=== PATIENT | male | born 1955 | race African-American/Black ===

== ENCOUNTER 2025-03-15 15:12 | Outpatient (AMB) | payer MEDICARE, SELFPAY ==
--- NOTE | 2025-03-15 15:22 | MHC.PC.OV ---
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 Intake Note: feet problem [employer] Sales Representative Required: No Accompanied by: Self / Same As Patient Allergies asprin Allergy (Intermediate, Uncoded 03/15/25 16:46) Hypotension Medication List - Last Reconciled 03/15/25 by Seven Patel MD acetaminophen 500 mg PO QID PRN albuterol sulfate 90 mcg/actuation (Ventolin HFA) 1 puff inhalation QID amlodipine 5 mg PO DAILY benzonatate 100 mg PO BID-TID PRN cholecalciferol (vitamin D3) 125 mcg PO DAILY cyclobenzaprine 5 mg PO BEDTIME diclofenac potassium 25 mg PO BID famotidine 20 mg PO DAILY ibuprofen 600 mg PO TID linaclotide 290 mcg PO DAILY magnesium oxide 400 mg PO DAILY mirtazapine 15 mg PO BEDTIME naproxen 500 mg PO BID rosuvastatin 10 mg PO DAILY solifenacin 10 mg PO DAILY trazodone 100 mg PO BEDTIME PRN Tobacco use date assessed: 03/15/25 Fall risk assessment: 1 Fall in past year Last assessed Fall Risk: 03/15/25 Dental Screening Dental Screen Date: 03/15/25 Did you have a dental visit in the last 12 months?: No Did you have a dental problem in the last 6 months where you did not have access to dental care?: Yes Was dental information given to patient?: No HPI HPI Comments History of Present Illness Details History of Present Illness The patient is a 69 year old individual presenting for an initial visit to establish care and for management of multiple chronic conditions. Myalgia and Arthritis: The patient reports chronic muscle problems with tension, arthritis, and daily pain for the last five to six years. The pain affects both joints and muscles, with one side being worse than the other, and particularly involves the hands. The pain worsens after any physical work, leading to an inability to sleep at night. Ibuprofen 800 mg provides no relief. The patient reports a diagnosis of sciatica and completed physical therapy about a year ago. History of Prostate Cancer: The patient is a prostate cancer survivor, having undergone a prostatectomy. The patient did not receive chemotherapy or radiation therapy. History of Colon Polyps: The patient's last colonoscopy was approximately eight to nine years ago, which found polyps. Gastroesophageal Reflux Disease: The patient reports having a reflux thing. History of Ankle Fracture: The patient sustained an ankle fracture while in the and was hospitalized for it. The patient underwent surgery where six screws and a plate were placed, and this hardware was later removed a couple of years later due to associated problems. Surgical History: - Prostatectomy for prostate cancer - Open reduction and internal fixation of an ankle fracture with six screws and a plate - Removal of ankle hardware Medications: - Ibuprofen 800 mg for pain, which the patient reports is not effective. - The patient takes other medications from the but could not recall their names. 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 - Marital Status: The patient is . - Living Situation: The patient moved to the area five months ago. Family History: - The patient reports that cancer runs in the family. - A brother has or had cancer. Diagnostic Results: - Colonoscopy (8-9 years ago): Revealed polyps. Past Medical History - Prostate cancer, status post-prostatectomy, without chemotherapy or radiation - History of colon polyps on colonoscopy performed 8-9 years ago - Arthritis - Myalgia - Gastroesophageal reflux - Sciatica - History of ankle fracture requiring open reduction with internal fixation and subsequent hardware removal - Possible allergy to aspirin on record Health Maintenance - The patient is establishing care as a new patient. - The last visit with a primary care physician was 8 months to a year ago. - The patient had a colonoscopy 8-9 years ago which showed polyps; the patient is overdue for screening. - A referral will be placed for a screening colonoscopy. - Baseline labs will be drawn, including a complete blood count, comprehensive metabolic panel, thyroid studies, vitamin B12, folate, vitamin D, hemoglobin A1c, lipid panel, and HIV/hepatitis panel. [facility] Medical History (Updated 03/15/25 @ 16:53 by Seven Patel MD) History of ankle fracture History of colon polyps History of prostate cancer Hypertension Myalgia Myalgia due to statin Osteopenia Hyperlipemia Renal calculus Prostate cancer Acid reflux Arthritis Depression Sleep apnea Surgical History (Updated 03/15/25 @ 15:29 by Steve Suazo CMA) History of ankle surgery Family History (Updated 03/15/25 @ 15:30 by Steve Suazo CMA) Brother Hypertension Mother Heart disease Sister Heart disease Brother Diabetes Paternal Aunt Diabetes Maternal Aunt Diabetes Social History Housing: House Patient Tobacco Use Status: Never used Tobacco e-Cigarette/Vaping Use: Never Used service: Yes Current occupational status: disabled Current occupational exposures/hazards: No Cognitive needs: No Hearing needs: No Vision needs: Yes Questionnaire PHQ-9 Over the last 2 weeks, how often have you been bothered by any of the following problems? 1. Little interest or pleasure in doing things: more than half the days 2. Feeling down, depressed, or hopeless: more than half the days 3. Trouble falling or staying asleep, or sleeping too much: nearly every day 4. Feeling tired or having little energy: more than half the days 5. Poor appetite or overeating: several days 6. Feeling bad about yourself - or that you are a failure or have let yourself or your family down: more than half the days 7. Trouble concentrating on things, such as reading the newspaper or watching television: several days 8. Moving or speaking so slowly that other people could have noticed. Or the opposite - being so fidgety or restless that you have been moving around a lot more than usual: several days [id number] - PHQ-9 Billing: Yes Source: Developed by Drs. Phoenix Esparza, Jing Ji, Chad Yang and colleagues, with an educational samra from [employer]. Thrive Questionnaire Date Thrive assessed: 03/15/25 Review of Systems Narrative Review of Systems - General: Reports chronic, daily pain. - Musculoskeletal: Reports muscle tension, arthritis, and pain in both joints and muscles, which is worse after activity and affects sleep. - Neurological: Reports sciatica. - Gastrointestinal: Reports having reflux. - Bowels: Reports bowel movements are mostly okay and denies straining. - Genitourinary: Reports frequent urination. - Cardiovascular: Denies lower leg swelling. - Allergies: Denies known allergies but notes aspirin is on the patient's record from a young age. 10-point ROS reviewed and negative except as noted in HPI Physical exam (Primary Care) Vital Signs: Last Vital Signs Temp 97.9 F 03/15/25 15:31 Pulse 61 03/15/25 15:31 Resp 16 03/15/25 15:31 BP 129/60 03/15/25 15:31 Pulse Ox 98 03/15/25 15:31 Oxygen Delivery Method Room Air 03/15/25 15:31 BMI result Body Mass Index 29.6 Tobacco/Smoking Status: Tobacco use Status Tobacco use date assessed 03/15/25 03/15/25 15:33 Patient Tobacco Use Status Never used Tobacco 03/15/25 15:33 e-Cigarette/Vaping Use Never Used 03/15/25 15:33 Thrive Assessment: Date of Thrive Assessment Date Thrive assessed 03/15/25 03/15/25 15:23 Narrative Physical Exam General: Well-appearing, in no acute distress. Vital signs: Within normal limits. HEENT: Normocephalic, atraumatic. PERRLA, EOMI. Conjunctiva clear, sclera anicteric. Oropharynx clear, mucous membranes moist. TMs intact bilaterally. Neck: Supple, no lymphadenopathy, no thyromegaly, no JVD or carotid bruits. Cardiovascular: RRR, normal S1/S2, no murmurs, rubs, or gallops. Peripheral pulses 2+ and symmetric. No edema. Respiratory: Lungs clear to auscultation bilaterally, no wheezes, rales, or rhonchi. Normal effort. Abdomen: Soft, non-tender, non-distended. Normoactive bowel sounds. No hepatosplenomegaly, no masses. MSK: Full range of motion, no joint swelling or deformity. Normal gait. Skin: Warm, dry, intact. No rashes, lesions, or pallor. Neuro: Alert and oriented x3. Cranial nerves II-XII intact. Strength 5/5 throughout. Sensation intact. Reflexes 2+ symmetric. Normal coordination and gait. Psych: Appropriate mood and affect. Normal judgment and insight. Coding Level of Care Code New Pt Level 4 (56695) Diagnoses Hypertension I10 History of prostate cancer Z85.46 History of colon polyps Z86.0100 History of ankle fracture Z87.81 Acid reflux K21.9 Arthritis M19.90 Additional Codes PHQ-9 - 52893 - PHQ-9 Billing: Yes ([id number]) Assessment & Plan Assessment & Plan (1) Hypertension: Code(s): I10 - Essential (primary) hypertension Category: Medical (2) History of prostate cancer: Code(s): Z85.46 - Personal history of malignant neoplasm of prostate Category: Medical (3) History of colon polyps: Code(s): Z86.0100 - Personal history of colon polyps, unspecified Category: Medical (4) History of ankle fracture: Code(s): Z87.81 - Personal history of (healed) traumatic fracture Category: Medical (5) Acid reflux: Code(s): K21.9 - Gastro-esophageal reflux disease without esophagitis Category: Medical (6) Arthritis: Code(s): M19.90 - Unspecified osteoarthritis, unspecified site Category: Medical Plan Consent Patient was informed and verbally consented to the use of an ambient scribe for clinic note documentation during this visit. Plan 1. Chronic Myalgia And Arthritis - Recommended a trial of [id number] Coenzyme Q10 (CoQ10) for muscle pain and aches. 2. Health Maintenance / New Patient Visit - Ordered comprehensive baseline labs including CBC, CMP, thyroid panel, B12, folate, vitamin D, HbA1c, lipid panel, and HIV/hepatitis screening. - The patient was advised to provide a complete medication list at checkout. - Scheduled a follow-up appointment in two weeks to review lab results. 3. Colon Cancer Screening - Based on a history of colon polyps found 8-9 years ago, the patient is overdue for follow-up. - A referral to Gastroenterology for a screening colonoscopy will be placed. - The patient was instructed to contact the specialist's office if they are not contacted within 1-2 weeks. Discussion Notes I explained to the patient that since this is an initial visit, we would get baseline bloodwork to assess overall health, including a complete blood count, comprehensive metabolic panel, thyroid function, vitamin levels, hemoglobin A1c, a lipid panel, and infectious disease screening. For the patient's chronic muscle and joint pain, which has been unresponsive to ibuprofen, I recommended a trial of [id number] CoQ10, explaining that it is a safe supplement that I have found helpful for other patients with similar symptoms. We discussed the history of colon polyps found on a colonoscopy 8-9 years ago. I explained that with a finding of polyps, a repeat screening is recommended every 3-5 years, making the patient overdue. Therefore, I am placing a referral to gastroenterology for a colonoscopy and advised the patient to call the specialist's office if no contact is made within two weeks. We will have a follow-up visit in two weeks to review all lab results and discuss any other questions the patient may have. Patient Instructions - This is a first-time visit to get to know you and your health. - You can buy a supplement called CoQ10 over the counter for your muscle pain. - We are ordering a full set of blood tests today to check on your overall health. - Please give the front worker staff your complete list of medications before you leave. - We are sending a referral to a gut doctor (senior principal software engineer) for you to get a colonoscopy. - Their office will call you to schedule. If you do not hear from them in one to two weeks, please give them a call. - Please schedule a follow-up appointment to see me in two weeks to go over your test results. - If you have any questions, write them down and bring them to your next visit. Medical Decision Making The patient is a 69-year-old individual presenting for a new patient visit to establish primary care. Davies issues addressed include chronic, diffuse myalgias and arthralgias, GERD, and health maintenance. The patient's chronic pain, ongoing for 5-6 years and poorly responsive to ibuprofen 800 mg, significantly impacts the patient's quality of life. As a low-risk initial intervention pending lab results, I recommended a trial of CoQ10, which I have found to be beneficial for some patients with non-specific muscle aches. A critical health maintenance concern is colon cancer screening. Given the history of colon polyps 8-9 years ago and a family history of cancer, the patient is overdue for surveillance. A repeat colonoscopy should occur every 3-5 years in this context, not every 10. Consequently, I am placing a referral to gastroenterology. To establish a comprehensive baseline, I ordered a full panel of labs to screen for common chronic illnesses and potential etiologies for the patient's symptoms. Follow-up in two weeks is scheduled to review these results and refine the long-term management plan. Total Time Statement 30 min Total time spent caring for the patient today includes pre-visit chart review, documentation, review of laboratory and diagnostic imaging results, medication reconciliation, medically necessary evaluation, counseling on diagnoses, care coordination, ordering appropriate tests and medications, review of tests performed by other providers, reporting test results to the patient, and communication with other healthcare providers. Orders: Orders Complete Blood Count Auto Diff Today Z13.9 - Encounter for screening, unspecified Hepatitis C Antibody Today Z13.9 - Encounter for screening, unspecified TSH reflex Free T4 Today Z13.9 - Encounter for screening, unspecified Lipid Panel Today Z13.9 - Encounter for screening, unspecified Hemoglobin A1c Today Z13.9 - Encounter for screening, unspecified Magnesium Today Z13.9 - Encounter for screening, unspecified Hepatitis B Surface Antigen Today Z13.9 - Encounter for screening, unspecified Syphilis Screen Today Z13.9 - Encounter for screening, unspecified Comprehensive Met. Panel Today Z13.9 - Encounter for screening, unspecified HIV Ab/Ag Today Z13.9 - Encounter for screening, unspecified UA CC w/rflx Micro + Cult Today Z13.9 - Encounter for screening, unspecified Vitamin B12 and Folate Today Z13.9 - Encounter for screening, unspecified Vitamin D 1,25 dihydroxy Today Z13.9 - Encounter for screening, unspecified Hepatitis B Surface Antibody Today Z13.9 - Encounter for screening, unspecified Referrals Open Access Screening Colonoscopy Referral Z12.11 - Encounter for screening for malignant neoplasm of colon, Z12.12 - Encounter for screening for malignant neoplasm of rectum
[2025-03-15 15:31] VITALS: BP 129/60; PULSE 61; RESP 16; TEMP 36.6; O2SAT 98; BMI 29.6
== END 2025-03-15 16:08 | disposition home or self-care (01) ==
LOC: HO.HMCFMS 15:12
PROVIDERS: PCP Student in an Organized Health Care Education/Training Program; Visit Provider Student in an Organized Health Care Education/Training Program
DX: I10 Essential (primary) hypertension (principal); Z85.46 Personal history of malignant neoplasm of prostate; Z86.0100 Personal history of colon polyps, unspecified; Z87.81 Personal history of (healed) traumatic fracture; K21.9 Gastro-esophageal reflux disease without esophagitis; M19.90 Unspecified osteoarthritis, unspecified site

== ENCOUNTER 2025-03-15 15:12 | Outpatient (REF) | payer MEDICARE, SELFPAY ==
[2025-03-15 18:19] LABS: MANUAL DIFF FLAG NO
[2025-03-15 18:38] LABS: Hematocrit 45.2 % (42.0-52.0); Hemoglobin 14.4 g/dl (14.0-18.0); Imm Gran Abs Auto 0.01 X10*3/uL (0.00-0.03); Imm Gran Pct Auto 0.2 % (0.0-0.4); Lymphocytes Absolute Auto 1.6 X10*3/uL (1.2-4.9); Mean Corpuscular HGB Conc 31.9 g/dl (31.0-36.0); Mean Corpuscular Hemoglobin 29.1 pg (27.0-33.0); Mean Corpuscular Volume 91.3 fL (80.0-98.0); NRBC Abs Auto 0.000 X10*3/uL (0.0-0.012); NRBC Pct Auto 0.0 /100WBC (0.0-0.2); Platelet Count 192 X10*3/uL (160-400); Red Blood Count 4.95 X10*6/uL (4.60-5.80); White Blood Count 4.7 X10*3/uL (4.8-10.8)
[2025-03-15 18:45] LABS: Appearance Urine Clear; Glucose Urine UA Negative (Negative); PH 7.0 (5.0-9.0); Specific Gravity - Urine 1.020 (1.005-1.025); UMIC TRIGGER UACC YES
[2025-03-15 19:05] LABS: Alanine Aminotransferase 28 U/L (0-40); Albumin Level 4.7 g/dL (3.5-5.0); Anion Gap 12 (12-20); Aspartate Amino Transferase 40 U/L (5-37); Blood Urea Nitrogen 19 mg/dL (9-16); Calcium 9.2 mg/dL (8.4-10.2); Carbon Dioxide 29 mmol/L (22-29); Chloride 107 mmol/L (96-108); Estimated Glomerular Filt Rate 42; Magnesium 2.0 mg/dL (1.6-2.6); Potassium 4.2 mmol/L (3.3-5.1); Sodium 144 mmol/L (135-145); Total Protein 7.3 g/dL (6.5-8.0); Triglycerides 150 mg/dL (<150)
[2025-03-15 19:06] LABS: Alkaline Phosphatase 58 U/L (39-117); Cholesterol 213 mg/dL (<200); HDL Cholesterol 52 mg/dL (>40)
[2025-03-15 19:36] LABS: Folate 7.0 ng/mL (> or = 4.0); Vitamin B12 695 pg/mL (200-900)
[2025-03-16 04:34] LABS: Syphilis Screen Nonreactive (Nonreactive)
[2025-03-16 05:14] LABS: HBS Num1 0.00 mIU/mL (0-7.99); HBsAGNum1 0.42 S/CO (0.00-0.99); HIV Num 1 0.08 S/CO (0.00-0.99); Hepatitis B Surface Antigen Negative (Negative); ~HepC Num1 0.08 S/CO (0.00-0.79); ~Hepatitis B Surface Antibody NONREACTIVE (Nonreactive); ~Hepatitis C Antibody Nonreactive (Nonreactive)
[2025-03-19 16:24] LABS: VITAMIN D (1,25 OH) D3 30 pg/mL; Vit D (1,25-Dihydroxy) Total 30 pg/mL (18-72); Vitamin D (1,25 OH) D2 <8 pg/mL
== END 2025-03-15 15:13 | disposition home or self-care (01) ==
LOC: HO.HKASLDS 15:12
PROVIDERS: PCP Student in an Organized Health Care Education/Training Program; Visit Provider Student in an Organized Health Care Education/Training Program
DX: Z13.9 Encounter for screening, unspecified (principal); K21.9 Gastro-esophageal reflux disease without esophagitis; M19.90 Unspecified osteoarthritis, unspecified site; I10 Essential (primary) hypertension; Z85.46 Personal history of malignant neoplasm of prostate; Z86.0100 Personal history of colon polyps, unspecified; Z87.81 Personal history of (healed) traumatic fracture
CPT/HCPCS: 36415; 80053; 80061; 81001; 82607; 82652; 82746; 83036; 83735; 84443; 85025; 86706; 86780; 86803; 87340; 87389; 96127; 99202

== ENCOUNTER 2025-04-01 09:56 | Outpatient (AMB) | payer MEDICARE, SELFPAY ==
--- NOTE | 2025-04-01 10:07 | MHC.PC.OV ---
Intake Visit Reasons: 2 week follow up Accompanied by: Self / Same As Patient Allergies asprin Allergy (Intermediate, Uncoded 03/15/25 16:46) Hypotension Medication List - Last Reconciled 04/01/25 by Seven Patel MD acetaminophen 500 mg PO QID PRN albuterol sulfate 90 mcg/actuation (Ventolin HFA) 1 puff inhalation QID amlodipine 5 mg PO DAILY benzonatate 100 mg PO BID-TID PRN cholecalciferol (vitamin D3) 125 mcg PO DAILY cyclobenzaprine 5 mg PO BEDTIME famotidine 20 mg PO DAILY linaclotide 290 mcg PO DAILY magnesium oxide 400 mg PO DAILY mirtazapine 15 mg PO BEDTIME rosuvastatin 20 mg PO DAILY solifenacin 10 mg PO DAILY trazodone 100 mg PO BEDTIME PRN Tobacco use date assessed: 04/01/25 Fall risk assessment: 1 Fall in past year Last assessed Fall Risk: 04/01/25 Dental Screening Dental Screen Date: 04/01/25 Did you have a dental visit in the last 12 months?: No HPI HPI Comments History of Present Illness Details History of Present Illness The patient is a 69 year old male presenting with a follow-up visit to review laboratory results. Chronic Kidney Disease: The patient reports a history of stage 3 chronic kidney disease, which was diagnosed by his previous doctor. He has a family history of kidney disease from his father. The patient has never seen a tan room supervisor for this condition. Recent labs showed a slightly elevated creatinine level. Hyperlipidemia: The patient is taking rosuvastatin 10 mg for hyperlipidemia. Recent non-fasting labs revealed triglycerides at 150 mg/dL, total cholesterol at 213 mg/dL, and LDL cholesterol at 131 mg/dL. He has no personal history of cardiac disease. Prostate Cancer: The patient has a history of prostate cancer. He reports his last PSA test was approximately four years ago. Medications: - Rosuvastatin 10 mg for high cholesterol. Family History: - Father had kidney disease. Diagnostic Results: - Complete blood count: Normal. - Basic metabolic panel: Sodium and potassium are normal; creatinine is slightly elevated. - Lipid panel (non-fasting): Cholesterol is 213 mg/dL, LDL is 131 mg/dL, and triglycerides are 150 mg/dL. - Liver function tests: An unspecified liver enzyme is elevated at 40 (cutoff is 30). - Urinalysis: Positive for a small amount of blood. - Vitamin B12, vitamin D, folate, and thyroid function tests: Normal. Past Medical History - Chronic kidney disease, stage 3 - History of prostate cancer - Chronic myalgia (per prior records) - Osteoarthritis (per prior records) - GERD (per prior records) Health Maintenance - Discussed PSA screening for prostate cancer history; the last test was 4 years ago. - The patient is awaiting scheduling for a colonoscopy. [facility] Medical History (Updated 04/01/25 @ 22:00 by Seven Patel MD) Elevated liver enzymes Hematuria Chronic kidney disease (CKD) History of ankle fracture History of colon polyps History of prostate cancer Hypertension Myalgia Myalgia due to statin Osteopenia Hyperlipemia Renal calculus Prostate cancer Acid reflux Arthritis Depression Sleep apnea Surgical History History of ankle surgery Family History Brother Hypertension Mother Heart disease Sister Heart disease Brother Diabetes Paternal Aunt Diabetes Maternal Aunt Diabetes Social History Housing: House Patient Tobacco Use Status: Never used Tobacco e-Cigarette/Vaping Use: Never Used service: Yes Current occupational status: disabled Current occupational exposures/hazards: No Cognitive needs: No Hearing needs: No Vision needs: Yes Questionnaire PHQ-9 Over the last 2 weeks, how often have you been bothered by any of the following problems? 1. Little interest or pleasure in doing things: more than half the days 2. Feeling down, depressed, or hopeless: more than half the days 3. Trouble falling or staying asleep, or sleeping too much: nearly every day 4. Feeling tired or having little energy: more than half the days 5. Poor appetite or overeating: several days 6. Feeling bad about yourself - or that you are a failure or have let yourself or your family down: more than half the days 7. Trouble concentrating on things, such as reading the newspaper or watching television: several days 8. Moving or speaking so slowly that other people could have noticed. Or the opposite - being so fidgety or restless that you have been moving around a lot more than usual: several days 9. Thoughts that you would be better off or of hurting yourself in some way: not at all Total score: 14 84133 - PHQ-9 Billing: Yes Source: Developed by Drs. Phoenix Esaprza, Jing Ji, Chad Yang and colleagues, with an educational samra from [employer]. Thrive Questionnaire Date Thrive assessed: 04/01/25 I am a: Patient What is your living situation today?: I have a steady place to live Within the past 12 months, did the food you bought not last and you didn't have the money to get more?: Never true Within the past 12 months, did you worry whether your food would run out before you got money to buy more?: Never true Do you have trouble paying for medicines?: No Do you have trouble getting transportation to medical appointments?: No Do you have trouble paying your heating and electricity bill?: No Do you have trouble taking care of your child, family member or friend?: No Are you currently unemployed and looking for a job?: No Are you interested in more education?: No Please select the resources that you would like help with: None Currently or been in a relationship where the following occur: No concerns reported THRIVE Score: 0 AUDIT C Alcohol Use Questionnaire (AUDIT-C) 1. How often do you have a drink containing alcohol?: Never Total Score: 0 TRINA-7 AMB Questionnaire TRINA-7 Date TRINA - 7 assessed: 04/01/25 Feeling nervous, anxious, or on edge: 1 = Several days Not being able to stop or control worryin = Not at all Worrying too much about different things: 0 = Not at all Trouble relaxin = Several days Being so restless that it is hard to sit still: 1 = Several days Becoming easily annoyed or irritable: 1 = Several days Feeling afraid as if something awful might happen: 0 = Not at all Total TRINA-7 score (0-4 normal; 5-9 mild; 10-14 moderate; 15-21 severe): 4 Source: Developed by Drs. Phoenix Esparza, Jing Ji, Chad Yang and colleagues, with an educational samra from [employer]. Review of Systems Narrative Review of Systems - Genitourinary: Reports a burning sensation with urination. Denies any history of hematuria. - Cardiovascular: Denies any cardiac history. 10-point ROS reviewed and negative except as noted in HPI Physical exam (Primary Care) Tobacco/Smoking Status: Tobacco use Status Tobacco use date assessed 04/01/25 04/01/25 10:10 Patient Tobacco Use Status Never used Tobacco 04/01/25 10:10 e-Cigarette/Vaping Use Never Used 04/01/25 10:10 PHQ-9: PHQ-9 Score PHQ-9: Total score 14 04/01/25 10:10 Thrive Assessment: Date of Thrive Assessment Date Thrive assessed 04/01/25 04/01/25 10:10 Currently or been in a relationship where the following occur: No concerns reported Narrative Physical Exam General: Well-appearing, in no acute distress. Vital signs: Within normal limits. HEENT: Normocephalic, atraumatic. PERRLA, EOMI. Conjunctiva clear, sclera anicteric. Oropharynx clear, mucous membranes moist. TMs intact bilaterally. Neck: Supple, no lymphadenopathy, no thyromegaly, no JVD or carotid bruits. Cardiovascular: RRR, normal S1/S2, no murmurs, rubs, or gallops. Peripheral pulses 2+ and symmetric. No edema. Respiratory: Lungs clear to auscultation bilaterally, no wheezes, rales, or rhonchi. Normal effort. Abdomen: Soft, non-tender, non-distended. Normoactive bowel sounds. No hepatosplenomegaly, no masses. MSK: Full range of motion, no joint swelling or deformity. Normal gait. Skin: Warm, dry, intact. No rashes, lesions, or pallor. Neuro: Alert and oriented x3. Cranial nerves II-XII intact. Strength 5/5 throughout. Sensation intact. Reflexes 2+ symmetric. Normal coordination and gait. Psych: Appropriate mood and affect. Normal judgment and insight. Office Procedures Flu Questionnaire Does the patient have a severe egg allergy?: No Does the patient have severe life threatening allergies?: No Does the patient have a fever or illness today?: No Has the patient ever had Guillain-Page Syndrome?: No Has the patient ever had any past reaction to a flu shot?: No Immunizations Fluarix [id number] (PF) 45 mcg (15 mcg x 3)/0.5 mL IM syringe Performing Provider: Seven Patel MD Performing Location: [facility] Administered by: Marily Loyd CMA on 04/01/25 10:15 Dose Route Admin Location Dispensed Lot Number Expiration Date NDC Press Brake Operator 0.5 mL IM Right Deltoid 0.5 mL [id number] 10/19/25 22882-822-17 [employer] VIS Given Date VIS Provided VIS Publication Date 04/01/25 Single Vaccine 24 Eligibility Eligibility Date Funding Source Not [facility] Eligible 04/01/25 Private Coding Level of Care Code Est Pt Level 3 (30602) Add On Problem Visit Only Diagnoses Chronic kidney disease (CKD) N18.9 Hematuria R31.9 History of prostate cancer Z85.46 Hyperlipemia E78.5 Hypertension I10 Elevated liver enzymes R74.8 Additional Codes PHQ-9 - 47922 - PHQ-9 Billing: Yes ([id number]) Assessment & Plan Assessment & Plan (1) Chronic kidney disease (CKD): Code(s): N18.9 - Chronic kidney disease, unspecified Category: Medical (2) Hematuria: Code(s): R31.9 - Hematuria, unspecified Category: Medical (3) History of prostate cancer: Code(s): Z85.46 - Personal history of malignant neoplasm of prostate Category: Medical (4) Hyperlipemia: Code(s): E78.5 - Hyperlipidemia, unspecified Category: Medical (5) Hypertension: Code(s): I10 - Essential (primary) hypertension Category: Medical (6) Elevated liver enzymes: Code(s): R74.8 - Abnormal levels of other serum enzymes Category: Medical Plan Consent Patient was informed and verbally consented to the use of an ambient scribe for clinic note documentation during this visit. Plan 1. Chronic Kidney Disease - The patient has been diagnosed with stage 3 chronic kidney disease and has a family history, but has not previously seen a specialist. - Given the slightly elevated creatinine, a referral will be placed for a nephrology consultation to assess for and prevent ongoing renal damage. - avoid nephrotoxoc medications, d/c NSAIDs - An ultrasound of the kidneys will be ordered for further evaluation. 2. Hyperlipidemia - Lab results show elevated total cholesterol and LDL, with triglycerides at the upper limit of normal. - The current dose of rosuvastatin 10 mg is deemed insufficient to achieve target LDL levels. - The dose of rosuvastatin will be increased to 20 mg to improve lipid control. 3. Hematuria And Dysuria - Urinalysis showed hematuria, and the patient reports a new symptom of dysuria. - A repeat urinalysis will be performed today to re-evaluate these findings. 4. Prostate Cancer Screening - The patient has a history of prostate cancer and his last PSA was approximately four years ago. - A PSA test will be ordered today along with the repeat urinalysis for screening. 5. Elevated Liver Enzymes - The patient has a mildly elevated liver enzyme (40, with a cutoff of 30), which is likely related to fatty liver from hypercholesterolemia. - No immediate imaging of the liver is planned at this time. 6. Follow-Up - Patient is to schedule a follow-up appointment in approximately three months. Discussion Notes I reviewed the patient's lab results with him. I explained that his creatinine is slightly elevated and, given his history of stage 3 chronic kidney disease, I am referring him to a tan room supervisor to prevent any continuing damage. I also ordered an ultrasound of his kidneys for further evaluation. I discussed his lipid panel, noting that his cholesterol and LDL were high despite being on rosuvastatin 10 mg. I recommended increasing the dose to 20 mg to get his numbers under better control. I mentioned his liver enzymes are slightly elevated, likely due to fat storage in the liver from his high cholesterol, and that I would hold off on a liver ultrasound for now. I addressed the finding of blood in his urine and his report of a burning sensation, and ordered a repeat urinalysis for today. At his request, and given his history of prostate cancer with his last PSA being four years ago, I added a PSA test to today's lab orders. I instructed him to follow up in three months. Patient Instructions - Increase your rosuvastatin dose from 10 mg to 20 mg as prescribed. - Expect a call from the nephrology (kidney doctor's) office to schedule an appointment. If you do not hear from them in a week or two, please call the hospital to follow up on the referral. - You will be contacted to schedule an ultrasound of your kidneys. - Please provide a urine sample today to repeat your urine test and have a blood test for your PSA level. - Make an appointment to see me again in about three months. Medical Decision Making The patient is a 69-year-old male here for a review of lab results. His labs show a slightly elevated creatinine, consistent with his reported history of stage 3 chronic kidney disease and family history. Given that he has not been evaluated by a specialist, a referral to nephrology is warranted to establish care and mitigate the risk of disease progression. A renal ultrasound is ordered for structural assessment. The patient's non-fasting lipid profile demonstrates hypercholesterolemia with an elevated LDL of 131 mg/dL, which is sub-optimally controlled on his current regimen of rosuvastatin 10 mg. To achieve better control and reduce cardiovascular risk, the rosuvastatin dose is increased to 20 mg. His mildly elevated liver enzyme is likely secondary to hepatic steatosis from hyperlipidemia, and immediate workup is deferred pending response to intensified statin therapy. The findings of hematuria and dysuria necessitate further investigation; therefore, a repeat urinalysis is ordered. Additionally, given the patient's history of prostate cancer and the four-year interval since his last screening, a PSA test is ordered to monitor for recurrence. A follow-up visit in three months will allow for a re-evaluation of his renal and lipid status, as well as a review of pending test results. Total Time Statement 20 min Total time spent caring for the patient today includes pre-visit chart review, documentation, review of laboratory and diagnostic imaging results, medication reconciliation, medically necessary evaluation, counseling on diagnoses, care coordination, ordering appropriate tests and medications, review of tests performed by other providers, reporting test results to the patient, and communication with other healthcare providers. Orders: Orders Influenza [id number] Immunization Today Z23 - Encounter for immunization US retroperitoneal limited Today N18.9 - Chronic kidney disease, unspecified UA CC w/rflx Micro + Cult Today R31.9 - Hematuria, unspecified PSA,Total (Free>4and<10) Today Z13.9 - Encounter for screening, unspecified Referrals Nephrology Referral I10 - Essential (primary) hypertension, N18.9 - Chronic kidney disease, unspecified Nurse Navigator Referral E78.5 - Hyperlipidemia, unspecified Medications: New rosuvastatin 20 mg PO DAILY 90 tabs 0RF rosuvastatin 20 mg PO DAILY 90 tabs 0RF
== END 2025-04-01 10:28 | disposition home or self-care (01) ==
LOC: HO.HMCFMS 09:57
PROVIDERS: PCP Student in an Organized Health Care Education/Training Program; Visit Provider Student in an Organized Health Care Education/Training Program
DX: N18.9 Chronic kidney disease, unspecified (principal); R31.9 Hematuria, unspecified; Z85.46 Personal history of malignant neoplasm of prostate; E78.5 Hyperlipidemia, unspecified; I12.9 Hypertensive chronic kidney disease with stage 1 through stage 4 chronic kidney disease, or unspecified chronic kidney disease; R74.8 Abnormal levels of other serum enzymes; Z23 Encounter for immunization

== ENCOUNTER 2025-04-01 09:56 | Outpatient (REF) | payer MEDICARE, SELFPAY ==
[2025-04-01 14:04] LABS: Appearance Urine Clear; Glucose Urine UA Negative (Negative); PH 5.5 (5.0-9.0); Specific Gravity - Urine 1.020 (1.005-1.025); UMIC TRIGGER UACC YES
[2025-04-01 14:38] LABS: PSA,Total (Free>4and<10) < 0.10 ng/mL (0.00-4.00)
== END 2025-04-01 09:57 | disposition home or self-care (01) ==
LOC: HO.HKASLDS 09:56
PROVIDERS: PCP Student in an Organized Health Care Education/Training Program; Visit Provider Student in an Organized Health Care Education/Training Program
DX: Z12.5 Encounter for screening for malignant neoplasm of prostate (principal); Z13.9 Encounter for screening, unspecified; R31.9 Hematuria, unspecified; Z23 Encounter for immunization; I12.9 Hypertensive chronic kidney disease with stage 1 through stage 4 chronic kidney disease, or unspecified chronic kidney disease; N18.9 Chronic kidney disease, unspecified; E78.5 Hyperlipidemia, unspecified; Z85.46 Personal history of malignant neoplasm of prostate; R74.8 Abnormal levels of other serum enzymes
CPT/HCPCS: 36415; 81001; 81003; 84153; 90471; 90656; 96127; 99212